=== PATIENT | male | born 1980 | race African-American/Black ===

== ENCOUNTER 2016-12-23 08:55 | Day surgery (SDC) | payer OTHER ==
[~2016-12-23] VITALS: Ht 175.3 cm; Wt 69.9 kg
[~2016-12-23 08:55] MED LIST: CYCLOBENZAPRINE5 MG PO; GUAIFENESIN-DM1 EAC2 PO; NABUMETONE500 MG PO; PROAIR HFA8.5 GM IH; SYMBICORT60 INHALAT IH; ZITHROMAX Z-PA250 MG PO; celeXA PO
== END 2016-12-23 10:45 | disposition home or self-care (01) ==
LOC: PAIN 08:55 → SDC 09:15 → PAIN 09:15
DX: M47.814 Spondylosis without myelopathy or radiculopathy, thoracic region (principal); S22.000S Wedge compression fracture of unspecified thoracic vertebra, sequela; M06.9 Rheumatoid arthritis, unspecified; F17.200 Nicotine dependence, unspecified, uncomplicated; G89.29 Other chronic pain; J84.10 Pulmonary fibrosis, unspecified; Z79.899 Other long term (current) drug therapy
CPT/HCPCS: J1030; J2250; J3010; S0020

== ENCOUNTER 2016-12-30 07:50 | Day surgery (SDC) | payer OTHER ==
[~2016-12-30] VITALS: Ht 175.3 cm; Wt 69.9 kg
[2016-12-30] MEDS ORDERED: ROXICODONE5 MG PO (08:08)
== END 2016-12-30 09:20 | disposition home or self-care (01) ==
LOC: PAIN 07:50 → SDC 08:15 → PAIN 09:20
DX: M47.814 Spondylosis without myelopathy or radiculopathy, thoracic region (principal); M54.9 Dorsalgia, unspecified; G89.29 Other chronic pain; S22.070S Wedge compression fracture of T9-T10 vertebra, sequela; S22.080S Wedge compression fracture of T11-T12 vertebra, sequela; M51.36 Other intervertebral disc degeneration, lumbar region; J44.9 Chronic obstructive pulmonary disease, unspecified
CPT/HCPCS: J1030; J2250; J3010; S0020

== ENCOUNTER 2017-03-03 07:17 | Day surgery (SDC) | payer OTHER ==
[~2017-03-03] VITALS: Ht 175.3 cm; Wt 70.3 kg
[~2017-03-03 07:17] MED LIST changes: +ROXICODONE5 MG PO
== END 2017-03-03 09:10 | disposition home or self-care (01) ==
LOC: PAIN 07:17 → SDC 07:45 → PAIN 07:45
DX: M47.814 Spondylosis without myelopathy or radiculopathy, thoracic region (principal); M48.54XA Collapsed vertebra, not elsewhere classified, thoracic region, initial encounter for fracture; G89.29 Other chronic pain; M51.36 Other intervertebral disc degeneration, lumbar region; J44.9 Chronic obstructive pulmonary disease, unspecified; M79.1 Myalgia; F17.200 Nicotine dependence, unspecified, uncomplicated; Z79.891 Long term (current) use of opiate analgesic
CPT/HCPCS: J1030; J2250; J3010; S0020